=== PATIENT | female | born 1970 | race Caucasian/White ===

== ENCOUNTER 2017-08-21 08:30 | Inpatient (IN) | payer OTHER ==
[~2017-08-21] VITALS: Ht 167.6 cm; Wt 70.3 kg
[2017-08-21] MEDS ORDERED: SYNTHROID88 MCG PO (10:28)
[2017-08-21] MEDS ORDERED: CLONAZEPAM2 MG PO (10:28)
[2017-08-21] MEDS ORDERED: LEXAPRO5 MG PO (10:29)
[2017-09-12] MEDS ORDERED: OXYC1TAB9 PO (11:31)
[2017-09-12] MEDS ORDERED: INTESTINEX680 M1 PO (11:31)
[2017-09-12] MEDS ORDERED: AMOX-CLAV 875-1 EACH PO (11:31)
[2017-09-12] MEDS ORDERED: FLAGYL500MG PO (11:31)
== END 2017-09-12 13:07 | disposition home or self-care (01) | DRG 329 ==
LOC: O/R 08-24 07:02 → SURH 08-24 07:02 → MEDI 08-24 13:41 → SURH 08-24 13:56
PROVIDERS: Surgery
PROC: 07TC4ZZ Resection of Pelvis Lymphatic, Percutaneous Endoscopic Approach (ICD-10-PCS; 2017-08-24)
PROC: 0WQF4ZZ Repair Abdominal Wall, Percutaneous Endoscopic Approach (ICD-10-PCS; 2017-08-24)
PROC: 0DTF4ZZ Resection of Right Large Intestine, Percutaneous Endoscopic Approach (ICD-10-PCS; principal; 2017-08-24 17:00)
PROC: BT43ZZZ Ultrasonography of Bilateral Kidneys (ICD-10-PCS; 2017-08-27)
PROC: 4A033R1 Measurement of Arterial Saturation, Peripheral, Percutaneous Approach (ICD-10-PCS; 2017-08-28)
PROC: 02HV33Z Insertion of Infusion Device into Superior Vena Cava, Percutaneous Approach (ICD-10-PCS; 2017-08-28)
PROC: B54DZZZ Ultrasonography of Bilateral Lower Extremity Veins (ICD-10-PCS; 2017-08-28)
PROC: 4A12X4Z Monitoring of Cardiac Electrical Activity, External Approach (ICD-10-PCS; 2017-08-28)
PROC: 0WJG4ZZ Inspection of Peritoneal Cavity, Percutaneous Endoscopic Approach (ICD-10-PCS; 2017-08-29)
PROC: 0DQ80ZZ Repair Small Intestine, Open Approach (ICD-10-PCS; 2017-08-29)
PROC: 0DU807Z Supplement Small Intestine with Autologous Tissue Substitute, Open Approach (ICD-10-PCS; 2017-08-29)
PROC: 3E0336Z Introduction of Nutritional Substance into Peripheral Vein, Percutaneous Approach (ICD-10-PCS; 2017-08-29)
PROC: BW21Y0Z Computerized Tomography (CT Scan) of Abdomen and Pelvis using Other Contrast, Unenhanced and Enhanced (ICD-10-PCS; 2017-08-29)
PROC: 3E1M38X Irrigation of Peritoneal Cavity using Irrigating Substance, Percutaneous Approach, Diagnostic (ICD-10-PCS; 2017-08-29)
PROC: 5A1945Z Respiratory Ventilation, 24-96 Consecutive Hours (ICD-10-PCS; 2017-08-29)
PROC: 0BH17EZ Insertion of Endotracheal Airway into Trachea, Via Natural or Artificial Opening (ICD-10-PCS; 2017-08-29)
PROC: B246ZZZ Ultrasonography of Right and Left Heart (ICD-10-PCS; 2017-08-29)
PROC: 3E0F7GC Introduction of Other Therapeutic Substance into Respiratory Tract, Via Natural or Artificial Opening (ICD-10-PCS; 2017-08-30)
PROC: 30233N1 Transfusion of Nonautologous Red Blood Cells into Peripheral Vein, Percutaneous Approach (ICD-10-PCS; 2017-09-04)
PROC: BW21Y0Z Computerized Tomography (CT Scan) of Abdomen and Pelvis using Other Contrast, Unenhanced and Enhanced (ICD-10-PCS; 2017-09-05)
DX: C18.0 Malignant neoplasm of cecum (principal); J95.821 Acute postprocedural respiratory failure; K65.1 Peritoneal abscess; N17.8 Other acute kidney failure; I97.89 Other postprocedural complications and disorders of the circulatory system, not elsewhere classified; I47.1 Supraventricular tachycardia; K56.0 Paralytic ileus; K91.89 Other postprocedural complications and disorders of digestive system; J95.89 Other postprocedural complications and disorders of respiratory system, not elsewhere classified; J98.11 Atelectasis; K91.71 Accidental puncture and laceration of a digestive system organ or structure during a digestive system procedure; T81.4XXA Infection following a procedure, initial encounter; J90 Pleural effusion, not elsewhere classified; C81.79 Other Hodgkin lymphoma, extranodal and solid organ sites; L02.211 Cutaneous abscess of abdominal wall; R59.0 Localized enlarged lymph nodes; K43.9 Ventral hernia without obstruction or gangrene; E03.8 Other specified hypothyroidism; F41.8 Other specified anxiety disorders; D50.0 Iron deficiency anemia secondary to blood loss (chronic); N99.0 Postprocedural (acute) (chronic) kidney failure; I34.0 Nonrheumatic mitral (valve) insufficiency; R09.02 Hypoxemia; B96.20 Unspecified Escherichia coli [E. coli] as the cause of diseases classified elsewhere; B96.5 Pseudomonas (aeruginosa) (mallei) (pseudomallei) as the cause of diseases classified elsewhere; B95.2 Enterococcus as the cause of diseases classified elsewhere; B96.89 Other specified bacterial agents as the cause of diseases classified elsewhere

== ENCOUNTER 2017-09-14 11:17 | Inpatient (IN) | payer OTHER ==
[~2017-09-14] VITALS: Ht 167.6 cm; Wt 68.0 kg
[~2017-09-14 11:17] MED LIST: AMOX-CLAV 875-1 EACH PO; CLONAZEPAM2 MG PO; FLAGYL500MG PO; INTESTINEX680 M1 PO; LEXAPRO5 MG PO; OXYC1TAB9 PO; SYNTHROID88 MCG PO
[2017-09-22] MEDS ORDERED: CARAFATE1 GM/10 ML PO (07:30)
[2017-09-22] MEDS ORDERED: FLUCONAZOLE100 MG PO (07:30)
[2017-09-22] MEDS ORDERED: ULTRACET PO (07:30)
[2017-09-22] MEDS ORDERED: LEVAQUIN750 MG PO (07:30)
== END 2017-09-22 11:15 | disposition home or self-care (01) | DRG 372 ==
LOC: ER 11:17 → SEC-K 20:10 → SURG 20:10
PROC: BW21YZZ Computerized Tomography (CT Scan) of Abdomen and Pelvis using Other Contrast (ICD-10-PCS; 2017-09-14)
PROC: BU4CZZZ Ultrasonography of Uterus and Ovaries (ICD-10-PCS; 2017-09-16)
PROC: 0W9J30Z Drainage of Pelvic Cavity with Drainage Device, Percutaneous Approach (ICD-10-PCS; principal; 2017-09-18)
PROC: 02HV33Z Insertion of Infusion Device into Superior Vena Cava, Percutaneous Approach (ICD-10-PCS; 2017-09-18)
DX: K65.1 Peritoneal abscess (principal); T81.4XXA Infection following a procedure, initial encounter; C18.2 Malignant neoplasm of ascending colon; Y83.6 Removal of other organ (partial) (total) as the cause of abnormal reaction of the patient, or of later complication, without mention of misadventure at the time of the procedure; Y92.098 Other place in other non-institutional residence as the place of occurrence of the external cause; E03.8 Other specified hypothyroidism; F41.8 Other specified anxiety disorders; B37.2 Candidiasis of skin and nail; B96.5 Pseudomonas (aeruginosa) (mallei) (pseudomallei) as the cause of diseases classified elsewhere; D50.0 Iron deficiency anemia secondary to blood loss (chronic)

== ENCOUNTER → 2018-06-09 | Emergency (ER) | payer OTHER ==
[~2018-06-09] VITALS: Ht 170.2 cm; Wt 72.6 kg
[~2018-06-09] MED LIST changes: +CARAFATE1 GM/10 ML PO; +FLUCONAZOLE100 MG PO; +LEVAQUIN750 MG PO; +ULTRACET PO
== END | disposition home or self-care (01) ==
LOC: ER 07:04
DX: R14.0 Abdominal distension (gaseous) (principal)